=== PATIENT | male | born 1965 | race Caucasian/White ===

== ENCOUNTER 2019-10-13 22:45 | Emergency (ER) | payer SELFPAY ==
[~2019-10-13] VITALS: Ht 185 cm; Wt 130.0 kg
[2019-10-13] MEDS ORDERED: ONDANSETRON 4 MG/2 ML (SDV) Z0FRAN IVP STA (23:06)
[2019-10-13] MEDS ORDERED: fentaNYL INJECTION 100 MCG/2 ML AMP IVP STA (23:06)
[2019-10-13] MEDS ORDERED: PANTOPRAZOLE 40 MG (PROTONIX) VIAL IV STA (23:06)
[2019-10-13] MEDS ORDERED: NS IV 1000 ML 1,000 ML IV STA (23:06)
[2019-10-13 23:09] LABS: BASOPHILS # (AUTO) 0.1 10^3/uL (0.0-0.1); BASOPHILS % (AUTO) 0 % (0-10); EOSINOPHILS # (AUTO) 0.4 10^3/uL (0.0-0.3); EOSINOPHILS % (AUTO) 3 % (0-10); HEMATOCRIT 48 % (40-54); HEMOGLOBIN 16.3 G/DL (13.3-17.7); LYMPHOCYTES # (AUTO) 5.5 X 10^3 (1.0-4.0); LYMPHOCYTES % (AUTO) 35 % (12-44); MEAN CORPUSCULAR HEMOGLOBIN 30 PG (25-34); MEAN CORPUSCULAR HGB CONC 34 G/DL (32-36); MEAN CORPUSCULAR VOLUME 87 FL (80-99); MEAN PLATELET VOLUME 11.3 FL (7.4-10.4); MONOCYTES # (AUTO) 0.9 X 10^3 (0.0-1.0); MONOCYTES % (AUTO) 6 % (0-12); NEUTROPHILS # (AUTO) 8.8 X 10^3 (1.8-7.8); NEUTROPHILS % (AUTO) 56 % (42-75); PLATELET COUNT 253 10^3/uL (130-400); RED CELL DISTRIBUTION WIDTH 13.2 % (10.0-14.5); WHITE BLOOD COUNT 15.8 10^3/uL (4.3-11.0)
[2019-10-13 23:11] LABS: INR 0.9 (0.8-1.4); PROTHROMBIN TIME PATIENT 12.3 SEC (12.2-14.7)
--- NOTE | 2019-10-13 23:11 | ED Abdominal Pain ---
General Chief Complaint: Abdominal/GI Problems Stated Complaint: ABD PAIN,CHEST TIGHTNESS Nursing Triage Note: Patient states he began experiencing lower right sided abdominal pain and nausea yesterday that has become progressively worse. He states at 1200 this afternoon that he began experiencing pain in his chest that he described as indigestion. Sepsis Screen: No Definite Risk Source of Information: Patient History of Present Illness Date Seen by Provider: Oct 13, 2019 Time Seen by Provider: 22:46 Initial Comments 54-year-old male presenting with complaints of right-sided abdominal pain with nausea and diarrhea. He states this started on Thursday. He has had worsening pain in the last 36 hours. He denies any fever or chills. He also has had intermittent pain in his chest and epigastric area. Around noon he had chest pressure and some indigestion sensation. He had pain worse with movement and with bending. He denied any blood in his urine or stool. He states that he has a history of diabetes and high blood pressure. He has a family history of heart disease but has never had heart problems himself. Allergies and Home Medications Allergies Coded Allergies: No Known Drug Allergies (Unverified , 10/13/19) Home Medications Dicyclomine HCl 20 Mg Tablet, 20 MG PO QIDACHS PRN for abdominal pain Prescribed by: CORTNEY WALLACE on 10/14/19 0149 Patient Home Medication List Home Medication List Reviewed: Yes Review of Systems Review of Systems Constitutional: No chills, No fever; malaise EENTM: No Symptoms Reported Respiratory: No Symptoms Reported Cardiovascular: See HPI Gastrointestinal: See HPI Genitourinary: No Symptoms Reported Musculoskeletal: no symptoms reported Skin: no symptoms reported Psychiatric/Neurological: No Symptoms Reported Endocrine: No Symptoms Reported Hematologic/Lymphatic: No Symptoms Reported Past Kahkixd-Ndurbb-Wbpaor Hx Past Med/Social Hx: Reviewed Nursing Past Med/Soc Hx Patient Social History Alcohol Use: Denies Use Recreational Drug Use: No Smoking Status: Current Everyday Smoker Type Used: Cigarettes Recent Foreign Travel: No Contact w/Someone Who Travel: No Recent Infectious Disease Expo: No Recent Hopitalizations: No Seasonal Allergies Seasonal Allergies: No Past Medical History Surgeries: Yes (hernia) Respiratory: No Cardiac: Yes Hypertension Neurological: No Genitourinary: No Gastrointestinal: No Musculoskeletal: No Endocrine: Yes Diabetes, Non-Insulin dep HEENT: No Cancer: No Psychosocial: No Blood Disorders: No Physical Exam Vital Signs Vital Signs - First Documented 10/13/19 22:57 Temp 36.2 Pulse 101 Resp 16 B/P (MAP) 135/87 (103) Pulse Ox 96 O2 Delivery Room Air Capillary Refill : Less Than 3 Seconds Height/Weight/BMI Height: '" Weight: lbs. oz. kg; 37.00 BMI Method: General Appearance: WD/WN, mild distress, obese HEENT: PERRL/EOMI, pharynx normal Neck: non-tender, full range of motion, supple, normal inspection; No carotid bruit Respiratory: chest non-tender, lungs clear, normal breath sounds, no respiratory distress, no accessory muscle use Cardiovascular: normal peripheral pulses, regular rate, rhythm Gastrointestinal: soft, no pulsatile mass, abnormal bowel sounds (hyperactive); No distended, No guarding, No rebound; tenderness (right-sided abdominal tenderness with palpation worse in the right lower quadrant) Rectal: deferred Extremities: normal range of motion, non-tender, no calf tenderness, normal capillary refill Neurologic/Psychiatric: 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-XII nml as tested, no motor/sensory deficits, alert, oriented x 3 Skin: normal color, warm/dry Progress/Results/Core Measures Results/Orders Lab Results Laboratory Tests Test 10/13/19 22:52 10/14/19 00:30 Range/Units White Blood Count 15.8 H 4.3-11.0 10^3/uL Red Blood Count 5.47 4.35-5.85 10^6/uL Hemoglobin 16.3 13.3-17.7 G/DL Hematocrit 48 40-54 % Mean Corpuscular Volume 87 80-99 FL Mean Corpuscular Hemoglobin 30 25-34 PG Mean Corpuscular Hemoglobin Concent 34 32-36 G/DL Red Cell Distribution Width 13.2 10.0-14.5 % Platelet Count 253 130-400 10^3/uL Mean Platelet Volume 11.3 H 7.4-10.4 FL Neutrophils (%) (Auto) 56 42-75 % Lymphocytes (%) (Auto) 35 12-44 % Monocytes (%) (Auto) 6 0-12 % Eosinophils (%) (Auto) 3 0-10 % Basophils (%) (Auto) 0 0-10 % Neutrophils # (Auto) 8.8 H 1.8-7.8 X 10^3 Lymphocytes # (Auto) 5.5 H 1.0-4.0 X 10^3 Monocytes # (Auto) 0.9 0.0-1.0 X 10^3 Eosinophils # (Auto) 0.4 H 0.0-0.3 10^3/uL Basophils # (Auto) 0.1 0.0-0.1 10^3/uL Neutrophils % (Manual) 43 % Lymphocytes % (Manual) 44 % Monocytes % (Manual) 4 % Eosinophils % (Manual) 9 % Toxic Granulation 4+ Polychromasia SLIGHT Prothrombin Time 12.3 12.2-14.7 SEC INR Comment 0.9 0.8-1.4 Activated Partial Thromboplast Time 26 24-35 SEC Sodium Level 133 L 135-145 MMOL/L Potassium Level 4.6 3.6-5.0 MMOL/L Chloride Level 98 98-107 MMOL/L Carbon Dioxide Level 21 21-32 MMOL/L Anion Gap 14 5-14 MMOL/L Blood Urea Nitrogen 24 H 7-18 MG/DL Creatinine 0.76 0.60-1.30 MG/DL Estimat Glomerular Filtration Rate > 60 BUN/Creatinine Ratio 32 Glucose Level 365 H 70-105 MG/DL Calcium Level 10.2 H 8.5-10.1 MG/DL Corrected Calcium 10.0 8.5-10.1 MG/DL Magnesium Level 1.7 1.6-2.4 MG/DL Total Bilirubin 0.3 0.1-1.0 MG/DL Aspartate Amino Transf (AST/SGOT) 15 5-34 U/L Alanine Aminotransferase (ALT/SGPT) 20 0-55 U/L Alkaline Phosphatase 125 40-136 U/L Troponin I < 0.30 <0.30 NG/ML Total Protein 7.2 6.4-8.2 GM/DL Albumin 4.2 3.2-4.5 GM/DL Lipase 30 8-78 U/L Smear Scan 1+ LRG PLTS Urine Color YELLOW Urine Clarity CLEAR Urine pH 6.0 5-9 Urine Specific [place] 1.015 L 1.016-1.022 Urine Protein NEGATIVE NEGATIVE Urine Glucose (UA) 3+ H NEGATIVE Urine Ketones NEGATIVE NEGATIVE Urine Nitrite NEGATIVE NEGATIVE Urine Bilirubin NEGATIVE NEGATIVE Urine Urobilinogen 0.2 < = 1.0 MG/DL Urine Leukocyte Esterase NEGATIVE NEGATIVE Urine RBC (Auto) NEGATIVE NEGATIVE Urine RBC NONE /HPF Urine WBC 0-2 /HPF Urine Squamous Epithelial Cells 2-5 /HPF Urine Crystals NONE /LPF Urine Bacteria TRACE /HPF Urine Casts PRESENT /LPF Urine Hyaline Casts 0-2 H /LPF Urine Mucus NEGATIVE /LPF Urine Yeast FEW H /HPF Urine Culture Indicated YES My Orders Orders - CORTNEY WALLACE MD Comprehensive Metabolic Panel (10/13/19 23:04) Lipase (10/13/19 23:04) Ua Culture If Indicated (10/13/19 23:04) Ed Iv/Invasive Line Start (10/13/19 23:04) Cbc With Automated Diff (10/13/19 23:04) Troponin I (10/13/19 23:04) Magnesium (10/13/19 23:04) Protime With Inr (10/13/19:04) Partial Thromboplastin Time (10/13/19 23:04) Ns Iv 1000 Ml (Sodium Chloride 0.9%) (10/13/19 23:06) Fentanyl Injection (Sublimaze Injection (10/13/19 23:06) Pantoprazole Injection (Protonix Injecti (10/13/19 23:06) Ondansetron Injection (Zofran Injectio (10/13/19 23:06) Iohexol Injection (Omnipaque 350 Mg/Ml 1 (10/13/19 23:15) Received Contrast (Hold Metformin- Contr (10/13/19 23:15) Ns (Ivpb) (Sodium Chloride 0.9% Ivpb Bag (10/13/19 23:15) Manual Differential (10/13/19 22:52) Urine Culture (10/14/19 00:30) Ct Abd/Pelv W (Appendicitis) (10/14/19 00:54) Dicyclomine Capsule (Bentyl Capsule) (10/14/19 01:44) Rx-Dicyclomine Capsule (Rx-Bentyl Capsul (10/14/19 01:54) Rx-Dicyclomine Capsule (Rx-Bentyl Capsul (10/14/19 02:00) Medications Given in ED Current Medications Medications Dose Ordered Sig/Lele Route Start Time Stop Time Status Last Admin Dose Admin Iohexol 100 ml ONCE ONCE IV 10/13/19 23:15 10/13/19 23:16 DC 10/13/19 23:45 100 ML Sodium Chloride 100 ml ONCE ONCE IV 10/13/19 23:15 10/13/19 23:16 DC 10/13/19 23:45 100 ML Vital Signs/I&O 10/13/19 22:57 Temp 36.2 Pulse 101 Resp 16 B/P (MAP) 135/87 (103) Pulse Ox 96 O2 Delivery Room Air Blood Pressure Mean: 103 Progress Progress Note #1: Progress Note Obtain labs with EKG and CT scan of abdomen and pelvis. Try IV fluids for hydration, Protonix for indigestion and gastritis. Zofran for nausea and vomiting. Fentanyl for pain. His EKG did have frequent PVCs but there is no ST elevation. Progress Note #2: Progress Note Labs show elevated white blood cell count. His chemistry had elevated glucose but no elevation of his troponin. His renal function and hepatic function were normal. Other testing had no acute significant abnormalities. Progress Note #3: Progress Note CT scan showed no acute process within the abdomen or pelvis. When reviewing results with the patient his symptoms had significantly improved with hydration and treatment in the ED. Originally I had ordered a second troponin and lactic acid however his chest pain had started around noon and his troponin being 0 was very convincing for no acute coronary disease. Will cancel the second troponin and with him feeling better and pain improved with palpation and repeat exam will cancel the lactic acid. Counseled on return and follow-up precautions. We'll try Bentyl for abdominal pain. Counseled to follow-up with the clinic. Advised if he has worsening symptoms, fever over 101 Fahrenheit, uncontrolled vomiting or chest pain to return immediately. Otherwise check with the clinic and he may need to have colonoscopy or cardiac stress test. Initial ECG Impression Date: Oct 13, 2019 Initial ECG Impression Time: 22:55 Initial ECG Rate: 94 Initial ECG Rhythm: Normal Sinus Initial ECG Comparisson: No Previous ECG Available Comment sinus rhythm with a heart rate of 94 beats for minute. He has premature ventricular complexes. [place] interval of 150 ms. QT interval 339 ms with a QTc interval 424 ms. He has no acute ST elevation Diagnostic Imaging Diagonstic Imaging: CT Plain Films/CT/US/NM/MRI: abdomen, pelvis Comments No acute process within the abdomen or pelvis. Read by radiologist Leonid Whittaker M.D. at 00 50 and faxed at [phone] Departure Impression Primary Impression: Right sided abdominal pain Additional Impressions: Epigastric abdominal pain Diarrhea Qualified Codes: R19.7 - Diarrhea, unspecified Disposition: HOME, SELF-CARE Condition: Stable Departure-Patient Inst. Decision time for Depature: 01:46 Referrals: TANNER VYAS APRN (PCP/Family) Primary Care Physician Patient Instructions: Diarrhea in Adolescents and Adults, Severe Abdominal Pain, Adult (DC), Gastritis (DC) Add. Discharge Instructions: Stay well hydrated and try following a low fat bland diet Try the Bentyl (Dicyclomine) medicine for your abdominal pain and see if that helps. If the pain worsens, fever over 101 F, or uncontrolled vomiting then seek medical care immediately Check back with clinic about possible stress testing for your heart and to see if they need to set you up for a colonoscopy All discharge instructions reviewed with patient and/or family. Voiced understanding. Scripts Dicyclomine HCl (Dicyclomine HCl) 20 Mg Tablet 20 MG PO QIDACHS PRN for abdominal pain for 7 Days, #28 TAB 0 Refills Prov: CORTNEY WALLACE MD 10/14/19 CORTNEY WALLACE MD Oct 13, 2019 23:11
[2019-10-13 23:14] LABS: MAGNESIUM 1.7 MG/DL (1.6-2.4)
[2019-10-13] MEDS ORDERED: NS 100 ML (IVPB) BAG IV ONE (23:15)
[2019-10-13] MEDS ORDERED: IOHEXOL 350 MG/ML 100 ML (OMNIPAQUE 350) VIAL IV ONE (23:15)
[2019-10-13] MEDS ORDERED: HOLD METFORMIN - RECEIVED CONTRAST 20 ML VIAL IV SCH (23:15)
[2019-10-13 23:21] LABS: ALANINE AMINOTRANSFERASE 20 U/L (0-55); ALBUMIN 4.2 GM/DL (3.2-4.5); ALKALINE PHOSPHATASE 125 U/L (40-136); BILIRUBIN,TOTAL 0.3 MG/DL (0.1-1.0); BUN/CREATININE RATIO 32; CALCIUM 10.2 MG/DL (8.5-10.1); CARBON DIOXIDE 21 MMOL/L (21-32); CHLORIDE 98 MMOL/L (98-107); CREATININE SERUM 0.76 MG/DL (0.60-1.30); GFR ESTIMATED > 60; GLUCOSE 365 MG/DL (70-105); LIPASE 30 U/L (8-78); POTASSIUM 4.6 MMOL/L (3.6-5.0); SODIUM 133 MMOL/L (135-145); TOTAL PROTEIN 7.2 GM/DL (6.4-8.2)
[2019-10-13 23:22] LABS: EOSINOPHILS % (MANUAL) 9 %; LYMPHOCYTES % (MANUAL) 44 %; MONOCYTES % (MANUAL) 4 %; NEUTROPHILS % (MANUAL) 43 %; SMEAR SCAN COMMENT 1+ LRG PLTS
[2019-10-13 23:23] LABS: POLYCHROMASIA SLIGHT; TOXIC GRANULATION/VACUOLAZATIO 4+
[2019-10-14 00:54] LABS: BACTERIA,URINE TRACE /HPF; BILIRUBIN,URINE NEGATIVE (NEGATIVE); CLARITY,URINE CLEAR; COLOR,URINE YELLOW; GLUCOSE, URINE (UA) 3+ (NEGATIVE); HYALINE CASTS, URINE 0-2 /LPF; KETONES,URINE NEGATIVE (NEGATIVE); LEUKOCYTE ESTERASE ,URINE NEGATIVE (NEGATIVE); NITRITE,URINE NEGATIVE (NEGATIVE); PROTEIN,URINE NEGATIVE (NEGATIVE); WBC,URINE 0-2 /HPF; YEAST,URINE FEW /HPF
[2019-10-14] MEDS ORDERED: DICYCLOMINE 10 MG (BENTYL) CAP PO STA (01:44)
[2019-10-14] MEDS ORDERED: DICY20TA10 PO (01:49)
[2019-10-14] MEDS ORDERED: RX-DICYCLOMINE 10 MG (BENTYL) CAP PPK#4 PO ONE (01:54)
[2019-10-14] MEDS ORDERED: RX-DICYCLOMINE 10 MG (BENTYL) CAP PPK#4 PO PRN (02:00)
[2019-10-14 02:11] VITALS: BP 110/74
--- NOTE | 2019-10-14 06:19 | Diagnostic Imaging Report ---
PROCEDURE: CT abdomen and pelvis with contrast, rule out appendicitis. TECHNIQUE: Multiple contiguous axial images were obtained through the abdomen and pelvis after the administration of intravenous contrast. All CT scans use one or more of the following dose optimizing techniques: automated exposure control, MA and/or KvP adjustment based on patient size and exam type or iterative reconstruction. INDICATION: Nausea, vomiting, diarrhea, right-sided pain of 2 days' duration. No comparison. FINDINGS: The appendix is normal. There is no bowel, biliary or urinary tract obstruction. No bowel wall thickening. No perienteric or pericolonic edema. The unobstructed kidneys were nonfocal and nonacute. The liver, spleen, adrenals, pancreas and partly contracted gallbladder unremarkable. No pneumatosis or free air. No ascites, abscess, hematoma or acute fluid collection. The lung bases and the osseous structures nonacute. IMPRESSION: No obstructive features, inflammatory process, fluid collection, ascites or acute abnormalities. Dictated by: Dictated on workstation # [id number]
== END 2019-10-14 02:11 | disposition home or self-care (01) ==
LOC: ER FS 22:48
DX: R10.13 Epigastric pain (principal); R10.31 Right lower quadrant pain; R19.7 Diarrhea, unspecified; F17.210 Nicotine dependence, cigarettes, uncomplicated
CPT/HCPCS: 36415; 74177; 80053; 81000; 83690; 83735; 84484; 85007; 85027; 85610; 85730; 87088

== ENCOUNTER → 2019-10-14 | Outpatient (CLI) | payer SELFPAY ==
[~2019-10-14] MED LIST: DICY20TA10 PO
[2019-10-14 11:48] LABS: BASOPHILS % (AUTO) 1 % (0-10); EOSINOPHILS # (AUTO) 0.4 10^3/uL (0.0-0.3); EOSINOPHILS % (AUTO) 3 % (0-10); HEMATOCRIT 49 % (40-54); HEMOGLOBIN 16.2 G/DL (13.3-17.7); LYMPHOCYTES # (AUTO) 3.9 X 10^3 (1.0-4.0); LYMPHOCYTES % (AUTO) 33 % (12-44); MEAN CORPUSCULAR HEMOGLOBIN 29 PG (25-34); MEAN CORPUSCULAR HGB CONC 33 G/DL (32-36); MEAN CORPUSCULAR VOLUME 88 FL (80-99); MEAN PLATELET VOLUME 11.1 FL (7.4-10.4); MONOCYTES # (AUTO) 0.7 X 10^3 (0.0-1.0); MONOCYTES % (AUTO) 6 % (0-12); NEUTROPHILS # (AUTO) 6.8 X 10^3 (1.8-7.8); NEUTROPHILS % (AUTO) 57 % (42-75); PLATELET COUNT 245 10^3/uL (130-400); RED CELL DISTRIBUTION WIDTH 13.4 % (10.0-14.5); WHITE BLOOD COUNT 11.9 10^3/uL (4.3-11.0)
[2019-10-14 11:49] LABS: BAND NEUTROPHILS 2 %; BASOPHILS % (MANUAL) 1 %; EOSINOPHILS % (MANUAL) 4 %; LYMPHOCYTES % (MANUAL) 31 %; MONOCYTES % (MANUAL) 4 %; NEUTROPHILS % (MANUAL) 58 %; RBC MORPH NORMAL
== END ==
LOC: LAB FS 10:32
PROVIDERS: ATTEND Nurse Practitioner Family
DX: E11.9 Type 2 diabetes mellitus without complications (principal); D72.829 Elevated white blood cell count, unspecified
CPT/HCPCS: 36415; 83036; 85007; 85027